=== PATIENT | female | born 1980 | race American Indian/Alaskan Native ===

== ENCOUNTER 2022-05-02 05:30 | Emergency (ER) | payer MEDICARE ==
[2022-05-02] MEDS ORDERED: MORPHINE 4 MG/1 ML INJ IV ONE (07:11)
[2022-05-02] MEDS ORDERED: ONDANSETRON 4 MG/2 ML INJ IV ONE (07:11)
[2022-05-02] MEDS ORDERED: diazePAM 10 MG/2 ML SYRINGE IV ONE ×2 (07:11→10:41)
--- NOTE | 2022-05-02 07:51 | Emergency Department Report ---
ED Neuro Deficit HPI - General Chief Complaint: Weakness Stated Complaint: LT SIDE PAIN Time Seen by Provider: 05/02/22 06:54 Source: EMS Mode of arrival: Stretcher Limitations: No Limitations - History of Present Illness Initial Comments: 42-year-old female with a past medical history of obesity, diabetes, depression, anxiety, herniated lumbar disc, and hypertension presents to the hospital with complaints of a right-sided pain and paresthesias intermittent for the past 2 days. Initially patient describes pain to the like stinging bees to her right foot that then radiated upwards to her right leg and arm. She had difficulty moving secondary to pain. Symptoms resolved and returned 30 minutes later. Last night since 10 PM patient has more constant and severe right sided paresthesias with pain involving her right face, arm, and leg. She was initially seen seen at an urgent care and referred to the ED for work-up. Contrary to triage patient did not receive CT imaging prior to arrival. Pain is moderate in intensity and is exacerbated by palpation. Patient denies previous history of anemia. States she does have heavy menstrual cycles with the last cycle ending April 11. She denies melena or hematochezia. - Related Data Allergies/Adverse Reactions: Allergies Allergy/AdvReac Type Severity Reaction Status Date / Time acetaminophen Allergy Unknown Verified 05/02/22 05:56 [From Darvocet-N] propoxyphene Allergy Unknown Verified 05/02/22 05:56 [From Darvocet-N] ED Review of Systems ROS: Stated complaint: LT SIDE PAIN Other details as noted in HPI Comment: All other systems reviewed and negative ED Past Medical Hx - Past Medical History Previous Medical History?: Yes Hx Hypertension: Yes Hx Diabetes: Yes Hx Arthritis: Yes Additional medical history: depression and anxiety - Surgical History Past Surgical History?: Yes Hx Cholecystectomy: Yes (1999) Additional Surgical History: gastric bypass 2019 - Social History Smoking Status: Never Smoker ED Neuro Physical Exam - General Limitations: No Limitations Suspected Stroke: Yes - NIHSS Assessment Interval: Baseline 1a. Level of Consciousness: alert/keenly responsive 1b. LOC Questions: answers both correctly 1c. LOC Commands: performs tasks correctly 2. Best Gaze: normal 3. Visual: no visual loss 4. Facial Palsy: normal symmetrical movement 5b. Motor Arm Right: no drift 5a. Motor Arm Left: no drift 6a. Motor Leg Left: no drift 6b. Motor Leg Right: no drift 7. Limb Ataxia: absent 8. Sensory: mild/moderate sensory loss 9. Best Language: no aphasia 10. Dysarthria: normal 11. Extinction/Inattention: no abnormality Total Score: 1 Stroke Severity: Minor Stroke - Other Other exam information: General: No acute distress Head: Atraumatic Eyes: normal appearance ENT: Moist mucous membranes Neck: Normal appearance, no midline tenderness Chest: Clear to auscultation bilaterally CV: Regular rate and rhythm Abdomen: Soft, normal bowel sounds, nontender, nondistended, no rebound or guarding Rectal: Brown stool guaiac sent to lab Back: Normal inspection Extremity: Normal inspection, full range of motion Neuro: Alert O x 3, hypersensitive to touch to the anterior right upper and forearm and right lower leg with pain on palpation Psych: Appropriate behavior Skin: No rash ED Course Vital Signs 05/02/22 05/02/22 05/02/22 05:48 06:28 06:31 Temperature 98.1 F Pulse Rate 64 66 Respiratory 18 11 L Rate Blood Pressure 166/72 153/76 O2 Sat by Pulse 98 100 100 Oximetry 05/02/22 05/02/22 05/02/22 06:45 07:01 07:02 Temperature Pulse Rate 63 79 Respiratory 16 23 Rate Blood Pressure 153/76 146/85 O2 Sat by Pulse 100 98 99 Oximetry 05/02/22 05/02/22 05/02/22 07:15 07:31 07:45 Temperature Pulse Rate 65 64 62 Respiratory 18 16 15 Rate Blood Pressure 155/89 150/88 132/54 O2 Sat by Pulse 100 99 99 Oximetry 05/02/22 05/02/22 05/02/22 08:01 08:15 08:31 Temperature Pulse Rate 76 72 67 Respiratory 16 16 14 Rate Blood Pressure 134/76 148/77 155/88 O2 Sat by Pulse 95 97 100 Oximetry 05/02/22 05/02/22 05/02/22 08:45 09:01 09:15 Temperature Pulse Rate 66 62 62 Respiratory 14 15 15 Rate Blood Pressure 155/88 145/80 145/80 O2 Sat by Pulse 99 99 100 Oximetry 05/02/22 05/02/22 05/02/22 09:31 09:45 10:01 Temperature Pulse Rate 59 L 64 62 Respiratory 15 16 13 Rate Blood Pressure 145/80 145/80 145/80 O2 Sat by Pulse 100 100 99 Oximetry 05/02/22 05/02/22 05/02/22 10:46 10:51 11:39 Temperature Pulse Rate 63 67 Respiratory 11 L 37 H Rate Blood Pressure 145/80 143/78 131/78 O2 Sat by Pulse 81 L 97 99 Oximetry 05/02/22 05/02/22 05/02/22 11:40 11:51 12:05 Temperature 98.4 F Pulse Rate 65 62 Respiratory 18 18 Rate Blood Pressure 131/78 131/78 136/68 O2 Sat by Pulse 100 81 L 100 Oximetry 05/02/22 12:20 Temperature 98.4 F Pulse Rate 60 Respiratory 18 Rate Blood Pressure 127/67 O2 Sat by Pulse 99 Oximetry - Consultations Consultation #1: 05/02/22 07:[address] Bianchi with telemetry neuro. If no hemorrhage on CT head recommends aspirin and MRI - Lab Data Result diagrams: 05/02/22 07:28 05/02/22 07:28 Lab Results 05/02/22 05/02/22 05/02/22 Range/Units 07:28 07:28 07:28 WBC 4.6 (4.5-11.0) K/mm3 RBC 3.59 L (3.65-5.03) M/mm3 Hgb 5.8 L* (10.1-14.3) gm/dl Hct 21.0 L (30.3-42.9) % MCV 58 L (79-97) fl MCH 16 L (28-32) pg MCHC 28 L (30-34) % RDW 23.2 H (13.2-15.2) % Plt Count 173 (140-440) K/mm3 Add Manual Diff Complete Total Counted 100 Seg Neuts % (Manual) 52.0 (40.0-70.0) % Band Neutrophils % 0 % Lymphocytes % (Manual) 42.0 H (13.4-35.0) % Reactive Lymphs % (Man) 0 % Monocytes % (Manual) 5.0 (0.0-7.3) % Eosinophils % (Manual) 1.0 (0.0-4.3) % Basophils % (Manual) 0 (0.0-1.8) % Metamyelocytes % 0 % Myelocytes % 0 % Promyelocytes % 0 % Blast Cells % 0 % Nucleated RBC % Not Reportable Seg Neutrophils # Man 2.4 (1.8-7.7) K/mm3 Band Neutrophils # 0.0 K/mm3 Lymphocytes # (Manual) 1.9 (1.2-5.4) K/mm3 Abs React Lymphs (Man) 0.0 K/mm3 Monocytes # (Manual) 0.2 (0.0-0.8) K/mm3 Eosinophils # (Manual) 0.0 (0.0-0.4) K/mm3 Basophils # (Manual) 0.0 (0.0-0.1) K/mm3 Metamyelocytes # 0.0 K/mm3 Myelocytes # 0.0 K/mm3 Promyelocytes # 0.0 K/mm3 Blast Cells # 0.0 K/mm3 WBC Morphology Not Reportable Hypersegmented Neuts Not Reportable Hyposegmented Neuts Not Reportable Hypogranular Neuts Not Reportable Smudge Cells Not Reportable Toxic Granulation Not Reportable Toxic Vacuolation Not Reportable Dohle Bodies Not Reportable Pelger-Huet Anomaly Not Reportable Halina Rods Not Reportable Platelet Estimate Consistent w auto Clumped Platelets Not Reportable Plt Clumps, EDTA Not Reportable Large Platelets Not Reportable Giant Platelets Few Platelet Satelliting Not Reportable Plt Morphology Comment Not Reportable RBC Morphology Not Reportable Dimorphic RBCs Not Reportable Polychromasia Few Hypochromasia 3+ Poikilocytosis Not Reportable Anisocytosis 2+ Microcytosis 2+ Macrocytosis Not Reportable Spherocytes Not Reportable Pappenheimer Bodies Not Reportable Sickle Cells Not Reportable Target Cells Not Reportable Tear Drop Cells Not Reportable Ovalocytes Not Reportable Helmet Cells Not Reportable [place] Bodies Not Reportable [place] Rings Not Reportable [place] Cells Not Reportable Bite Cells Not Reportable Crenated Cell Not Reportable Elliptocytes Not Reportable Acanthocytes (Spur) Not Reportable Rouleaux 1+ Hemoglobin C Crystals Not Reportable Schistocytes Not Reportable Malaria parasites Not Reportable Jacky Bodies Not Reportable Hem Pathologist Commnt No PT 14.3 (12.2-14.9) Sec. INR 1.00 (0.87-1.13) APTT 26.8 (24.2-36.6) Sec. Thrombin Time 15.1 (15.1-19.6) Sec. Sodium 140 (137-145) mmol/L Potassium 3.8 (3.6-5.0) mmol/L Chloride 105.2 (98-107) mmol/L Carbon Dioxide 25 (22-30) mmol/L Anion Gap 14 mmol/L BUN 10 (7-17) mg/dL Creatinine 0.5 L (0.6-1.2) mg/dL Estimated GFR > 60 ml/min BUN/Creatinine Ratio 20 % Glucose 80 (65-100) mg/dL Calcium 9.0 (8.4-10.2) mg/dL Magnesium (1.7-2.3) mg/dL Total Bilirubin 0.30 (0.1-1.2) mg/dL AST 19 (5-40) units/L ALT 13 (7-56) units/L Alkaline Phosphatase 79 (35-129) units/L Total Creatine Kinase 116 (30-135) units/L CK-MB (CK-2) 2.9 (0.0-4.0) ng/mL CK-MB (CK-2) Rel Index 2.5 (0-4) Troponin T < 0.010 (0.00-0.029) ng/mL Total Protein 7.3 (6.3-8.2) g/dL Albumin 4.1 (3.9-5) g/dL Albumin/Globulin Ratio 1.3 % TSH (0.270-4.200) mlU/mL Free T4 (0.76-1.46) ng/dL HCG, Quant (0-4) mIU/mL Blood Type Antibody Screen Crossmatch 05/02/22 05/02/22 05/02/22 Range/Units 07:28 07:28 09:24 WBC (4.5-11.0) K/mm3 RBC (3.65-5.03) M/mm3 Hgb (10.1-14.3) gm/dl Hct (30.3-42.9) % MCV (79-97) fl MCH (28-32) pg MCHC (30-34) % RDW (13.2-15.2) % Plt Count (140-440) K/mm3 Add Manual Diff Total Counted Seg Neuts % (Manual) (40.0-70.0) % Band Neutrophils % % Lymphocytes % (Manual) (13.4-35.0) % Reactive Lymphs % (Man) % Monocytes % (Manual) (0.0-7.3) % Eosinophils % (Manual) (0.0-4.3) % Basophils % (Manual) (0.0-1.8) % Metamyelocytes % % Myelocytes % % Promyelocytes % % Blast Cells % % Nucleated RBC % Seg Neutrophils # Man (1.8-7.7) K/mm3 Band Neutrophils # K/mm3 Lymphocytes # (Manual) (1.2-5.4) K/mm3 Abs React Lymphs (Man) K/mm3 Monocytes # (Manual) (0.0-0.8) K/mm3 Eosinophils # (Manual) (0.0-0.4) K/mm3 Basophils # (Manual) (0.0-0.1) K/mm3 Metamyelocytes # K/mm3 Myelocytes # K/mm3 Promyelocytes # K/mm3 Blast Cells # K/mm3 WBC Morphology Hypersegmented Neuts Hyposegmented Neuts Hypogranular Neuts Smudge Cells Toxic Granulation Toxic Vacuolation Dohle Bodies Pelger-Huet Anomaly Halina Rods Platelet Estimate Clumped Platelets Plt Clumps, EDTA Large Platelets Giant Platelets Platelet Satelliting Plt Morphology Comment RBC Morphology Dimorphic RBCs Polychromasia Hypochromasia Poikilocytosis Anisocytosis Microcytosis Macrocytosis Spherocytes Pappenheimer Bodies Sickle Cells Target Cells Tear Drop Cells Ovalocytes Helmet Cells [place] Bodies [place] Rings [place] Cells Bite Cells Crenated Cell Elliptocytes Acanthocytes (Spur) Rouleaux Hemoglobin C Crystals Schistocytes Malaria parasites Jacky Bodies Hem Pathologist Commnt PT (12.2-14.9) Sec. INR (0.87-1.13) APTT (24.2-36.6) Sec. Thrombin Time (15.1-19.6) Sec. Sodium (137-145) mmol/L Potassium (3.6-5.0) mmol/L Chloride (98-107) mmol/L Carbon Dioxide (22-30) mmol/L Anion Gap mmol/L BUN (7-17) mg/dL Creatinine (0.6-1.2) mg/dL Estimated GFR ml/min BUN/Creatinine Ratio % Glucose (65-100) mg/dL Calcium (8.4-10.2) mg/dL Magnesium 2.20 (1.7-2.3) mg/dL Total Bilirubin (0.1-1.2) mg/dL AST (5-40) units/L ALT (7-56) units/L Alkaline Phosphatase (35-129) units/L Total Creatine Kinase (30-135) units/L CK-MB (CK-2) (0.0-4.0) ng/mL CK-MB (CK-2) Rel Index (0-4) Troponin T < 0.010 (0.00-0.029) ng/mL Total Protein (6.3-8.2) g/dL Albumin (3.9-5) g/dL Albumin/Globulin Ratio % TSH 1.840 (0.270-4.200) mlU/mL Free T4 1.12 (0.76-1.46) ng/dL HCG, Quant < 2 (0-4) mIU/mL Blood Type Antibody Screen Crossmatch 05/02/22 Range/Units 09:29 WBC (4.5-11.0) K/mm3 RBC (3.65-5.03) M/mm3 Hgb (10.1-14.3) gm/dl Hct (30.3-42.9) % MCV (79-97) fl MCH (28-32) pg MCHC (30-34) % RDW (13.2-15.2) % Plt Count (140-440) K/mm3 Add Manual Diff Total Counted Seg Neuts % (Manual) (40.0-70.0) % Band Neutrophils % % Lymphocytes % (Manual) (13.4-35.0) % Reactive Lymphs % (Man) % Monocytes % (Manual) (0.0-7.3) % Eosinophils % (Manual) (0.0-4.3) % Basophils % (Manual) (0.0-1.8) % Metamyelocytes % % Myelocytes % % Promyelocytes % % Blast Cells % % Nucleated RBC % Seg Neutrophils # Man (1.8-7.7) K/mm3 Band Neutrophils # K/mm3 Lymphocytes # (Manual) (1.2-5.4) K/mm3 Abs React Lymphs (Man) K/mm3 Monocytes # (Manual) (0.0-0.8) K/mm3 Eosinophils # (Manual) (0.0-0.4) K/mm3 Basophils # (Manual) (0.0-0.1) K/mm3 Metamyelocytes # K/mm3 Myelocytes # K/mm3 Promyelocytes # K/mm3 Blast Cells # K/mm3 WBC Morphology Hypersegmented Neuts Hyposegmented Neuts Hypogranular Neuts Smudge Cells Toxic Granulation Toxic Vacuolation Dohle Bodies Pelger-Huet Anomaly Halina Rods Platelet Estimate Clumped Platelets Plt Clumps, EDTA Large Platelets Giant Platelets Platelet Satelliting Plt Morphology Comment RBC Morphology Dimorphic RBCs Polychromasia Hypochromasia Poikilocytosis Anisocytosis Microcytosis Macrocytosis Spherocytes Pappenheimer Bodies Sickle Cells Target Cells Tear Drop Cells Ovalocytes Helmet Cells [place] Bodies [place] Rings [place] Cells Bite Cells Crenated Cell Elliptocytes Acanthocytes (Spur) Rouleaux Hemoglobin C Crystals Schistocytes Malaria parasites Jacky Bodies Hem Pathologist Commnt PT (12.2-14.9) Sec. INR (0.87-1.13) APTT (24.2-36.6) Sec. Thrombin Time (15.1-19.6) Sec. Sodium (137-145) mmol/L Potassium (3.6-5.0) mmol/L Chloride (98-107) mmol/L Carbon Dioxide (22-30) mmol/L Anion Gap mmol/L BUN (7-17) mg/dL Creatinine (0.6-1.2) mg/dL Estimated GFR ml/min BUN/Creatinine Ratio % Glucose (65-100) mg/dL Calcium (8.4-10.2) mg/dL Magnesium (1.7-2.3) mg/dL Total Bilirubin (0.1-1.2) mg/dL AST (5-40) units/L ALT (7-56) units/L Alkaline Phosphatase (35-129) units/L Total Creatine Kinase (30-135) units/L CK-MB (CK-2) (0.0-4.0) ng/mL CK-MB (CK-2) Rel Index (0-4) Troponin T (0.00-0.029) ng/mL Total Protein (6.3-8.2) g/dL Albumin (3.9-5) g/dL Albumin/Globulin Ratio % TSH (0.270-4.200) mlU/mL Free T4 (0.76-1.46) ng/dL HCG, Quant (0-4) mIU/mL Blood Type B POSITIVE Antibody Screen Negative Crossmatch See Detail - EKG Data -: EKG Interpreted by Me EKG shows normal: sinus rhythm, intervals (Prolonged IA 211), ST-T waves ([facility]) Rate: normal When compared to previous EKG there are: previous EKG unavailable - Radiology Data Radiology results: report reviewed CT head, CT cervical spine, CT angiogram head and neck reviewed. No significant acute abnormalities. Please refer to official report - Medical Decision Making 42-year-old female presents to the hospital with complaints of a right sided paresthesias x2 days. Symptoms more persistent since last night. Neurology consult appreciated. CT head, cervical spine, and CT angiogram head and neck do not reveal any significant acute abnormalities. Labs significant for significant anemia. Patient does endorse fatigue and shortness of breath when questioned. She does have a history of heavy menstrual cycles. Denies known history of iron deficiency anemia. Guaiac negative brown stool on exam. 1 unit of PRBC initiated in the ED. Aspirin provided for stroke symptoms. Patient discussed with hospitalist for admission for further work-up and evaluation Critical Care Time: No Critical care attestation.: If time is entered above; I have spent that time in minutes in the direct care of this critically ill patient, excluding procedure time. ED Disposition Clinical Impression: Right sided numbness, Paresthesia, Signs and symptoms of anemia Disposition: ADMITTED INPATIENT Is pt being admited?: Yes Condition: Stable Time of Disposition: 12:30 (Dr Cole/hospitalist)
[2022-05-02 08:53] LABS: Mean Corpuscular HGB Conc 28 % (30-34); Platelet Count 173 K/mm3 (140-440); Red Blood Count 3.59 M/mm3 (3.65-5.03)
[2022-05-02 09:01] LABS: Hemoglobin 5.8 gm/dl (10.1-14.3); Mean Corpuscular Volume 58 fl (79-97); Red Cell Distribution Width 23.2 % (13.2-15.2)
[2022-05-02 09:15] LABS: Alanine Aminotransferase 13 units/L (7-56); Albumin 4.1 g/dL (3.9-5); Blood Urea Nitrogen 10 mg/dL (7-17); Creatine Kinase MB 2.9 ng/mL (0.0-4.0); Hemolysis Index 0
[2022-05-02 09:19] LABS: Free T4 (Free Thyroxine) 1.12 ng/dL (0.76-1.46)
[2022-05-02 09:27] LABS: BUN/Creatinine Ratio 20; HCG,Quantitative < 2 mIU/mL (0-4)
[2022-05-02 09:32] LABS: Partial Thromboplastin Time 26.8 Sec. (24.2-36.6)
[2022-05-02 09:33] LABS: Thrombin Time 15.1 Sec. (15.1-19.6)
[2022-05-02] MEDS ORDERED: SODIUM CHLORIDE 0.9% 500 ML 500 ML IV ONE (10:18)
--- NOTE | 2022-05-02 11:48 | Cat Scan Report ---
CT HEAD WITHOUT CONTRAST INDICATION / CLINICAL INFORMATION: Right-sided paresthesias x2 days. TECHNIQUE: Axial imaging performed from the skull apex through the skull base without the use of cont rast. Sagittal and coronal reformatted images. All CT scans at this location are performed using CT dose reduction for ALARA by means of automated exposure control. COMPARISON: None available. FINDINGS: CEREBRAL PARENCHYMA: No significant abnormality. No acute territorial infarct. HEMORRHAGE: None. EXTRA-AXIAL SPACES: Normal in size and morphology for the patient's age. VENTRICULAR SYSTEM: Normal in size and morphology for the patient's age. MIDLINE SHIFT OR HERNIATION: None. CEREBELLUM / BRAINSTEM: No significant abnormality. CALVARIUM: No significant abnormality. ORBITS: Normal as visualized. PARANASAL SINUSES / MASTOID AIR CELLS: Normal as visualized. SOFT TISSUES of HEAD: No significant abnormality. ADDITIONAL FINDINGS: None. IMPRESSION: No acute intracranial abnormality. Cranial CT scan within normal limits. Signer Name: Moises Tanner Jr, MD Signed: 05/02/2022 11:43 AM Workstation Name: [id number]
[2022-05-02 12:00] LABS: Anisocytosis 2+; Basophils % (Manual) 0 % (0.0-1.8); Hypochromasia 3+; Total Cells Counted 100
[2022-05-02 12:01] LABS: Rouleaux 1+
[2022-05-02 12:03] LABS: Giant Platelets Few; Platelet Estimate Consistent w Auto
--- NOTE | 2022-05-02 12:19 | Cat Scan Report ---
CT CERVICAL SPINE WITHOUT CONTRAST INDICATION: Right-sided paresthesias x2 days. TECHNIQUE: Axial imaging performed through the cervical spine without the use of contrast. Sagittal and coronal reconstructed images were also reviewed. All CT scans at this location are performed us ing CT dose reduction for ALARA by means of automated exposure control. COMPARISON: None FINDINGS: Alignment: There is mild reversal of the normal cervical lordosis which could be secondary to positi oning or muscular spasm. No subluxation. Bones: There is no acute osseous abnormality. Mild discogenic DJD is identified at C5-6. The remain ing levels are within normal limits. No significant facet arthropathy. No obvious narrowing of the [place] neural foramen. Bilateral cervical ribs are identified at C7, small on the right and moderate on the left. Soft tissues: No acute or significant incidental soft tissue abnormality. IMPRESSION: 1. No acute abnormality. 2. 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 3. Bilateral cervical ribs C7, left greater than right Signer Name: Moises Tanner Jr, MD Signed: 05/02/2022 12:13 PM Workstation Name: [id number]
--- NOTE | 2022-05-02 12:22 | Cat Scan Report ---
CT angio head, CT angio neck HISTORY: Right-sided paresthesias x2 days COMPARISON: None. TECHNIQUE: CTA of the neck and head is performed after IV contrast. 3-D/MIP reformats were postproces sed. Percentage stenosis is determined by direct quantitative measurements of diseased internal [place] tid artery diameter compared with normal distal internal carotid artery reference segments or by crit eria similar to NASCET where applicable. All CT scans at this location are performed using CT dose re duction for ALARA by means of automated exposure control. FINDINGS: CTA NECK: Aortic arch: No significant abnormality. Cervical vertebral arteries: No occlusion or hemodynamically significant stenosis. Common Carotid arteries: No occlusion or hemodynamically significant stenosis. Internal carotid arteries: No occlusion or hemodynamically significant stenosis. CTA HEAD: Intracranial internal carotid arteries: No occlusion or significant stenosis. Anterior cerebral arteries: No occlusion or significant stenosis. Middle cerebral arteries: No occlusion or significant stenosis. Intracranial vertebral arteries: No occlusion or significant stenosis. Basilar artery: No occlusion or significant stenosis. Posterior cerebral arteries: No occlusion or significant stenosis. No aneurysm. Additional findings: None. IMPRESSION: 1. CTA NECK: No occlusion or significant stenosis of the carotid or vertebral arteries. 2. CTA HEAD: No occlusion or significant stenosis of the major intracranial vasculature. Signer Name: Bryson García MD Signed: 05/02/2022 12:18 PM Workstation Name: [id number]
[2022-05-02] MEDS ORDERED: ASPIRIN 325 MG TAB PO ONE (12:26)
--- NOTE | 2022-05-02 13:09 | Consultation ---
History of Present Illness - Reason for Consult Consult date: 05/02/22 Tingling in arm and leg Requesting physician: JEFFERSON KUMARI - History of Present Illness 42 YO Female with Obesity S/P Gastric bypass, DM, MDD, BRI, OA, HTN presents ED for evaluation. Patient reports "it feels like bees are stinging me in my foot and my arm". Patient states that she has experienced stinging pain and discomfort to her leg and arm over the past several months with worsening sym ptoms over the past 2 days. Patient states his symptoms are intermittent and normally last approximate 1/2-hour. EMS was notified and upon arrival the patient was ultimately transferred to [facility] for further care and evaluation of the aforementioned symptoms. The patient seen and evaluated emergency department. All lab and imaging studies reviewed. Patient with extensive neuroradiology work-up including CT scan of the brain, CTA head and CTA neck which were unremarkable. Patient found to have clinical symptoms consistent with vitamin B deficiency which is common after gastric bypass as well as with concomitant diabetic neuropathy. Patient also found to have iron deficiency anemia. Richy lawler does not meet admission criteria at this time. Patient may be discharged home for outpatient follow-up with primary care physician. Patient seen and evaluated prior to discharge no significant physical exam findings. Past History Past Medical History: diabetes, hypertension, other (See HPI) Past Surgical History: cholecystectomy, bowel surgery, Other (Gastric bypass) Social history: single Family history: diabetes. denies: hypertension Medications and Allergies Allergies Allergy/AdvReac Type Severity Reaction Status Date / Time acetaminophen Allergy Unknown Verified 05/02/22 05:56 [From Darvocet-N] propoxyphene Allergy Unknown Verified 05/02/22 05:56 [From Darvocet-N] Home Medications Medication Instructions Recorded Confirmed Last Taken Type Ferrous Sulfate [Ferrous Sulfate 324 mg PO TID #90 05/02/22 Unknown Rx 324 MG] Gabapentin [Neurontin] 600 mg PO BID #60 05/02/22 Unknown Rx Sennosides/Docusate Sodium [Cvs 1 each PO BID #60 05/02/22 Unknown Rx Senna Plus Tablet] Vitamin B Complex [B Complex] 1 each PO DAILY #30 05/02/22 Unknown Rx Review of Systems Constitutional: no weight loss, no weight gain, no fever, no chills Ears, nose, mouth and throat: no ear pain, no tinnitis, no decreased hearing, no nose pain, no nasal discharge Breasts: no change in shape Cardiovascular: no chest pain, no orthopnea, no palpitations, no syncope Respiratory: no cough, no cough with sputum, no hemoptysis, no dyspnea on exertion Gastrointestinal: no abdominal pain, no constipation, no hematemesis Genitourinary Female: no pelvic pain, no flank pain, no dysuria, no urinary frequency Rectal: no pain, no incontinence, no bleeding Musculoskeletal: no neck stiffness, no neck pain, no arm numbness/tingling Integumentary: no rash, no pruritis, no redness, no wounds, no jaundice Neurological: parathesias, burning pain, no head injury, no paralysis, no weakne ss, no seizures, no syncope, no tremors, no ataxia, no vertigo, no headaches, no migraines, no aphasia, no change in mentation, no memory loss, no gait dysfunction, no motor disturbance, no sensory deficit, no double vision, no loss of vision Psychiatric: no anxiety, no memory loss, no change in appetite, no change in libido, no suicidal ideation Endocrine: no cold intolerance, no excessive thirst, no polydipsia, no excessive sweating Hematologic/Lymphatic: no easy bruising, no easy bleeding, no lymphadenopathy Allergic/Immunologic: no urticaria, no anaphylaxis Exam - Constitutional Vitals: Temp Pulse Resp BP Pulse Ox 98.4 F 75 15 131/78 100 05/02/22 12:20 05/02/22 12:31 05/02/22 12:31 05/02/22 12:31 05/02/22 12:31 General appearance: Present: no acute distress, obese - EENT Eyes: Present: PERRL ENT: hearing intact, clear oral mucosa - Neck Neck: Present: supple, normal ROM - Respiratory Respiratory effort: normal Respiratory: bilateral: CTA - Cardiovascular Heart Sounds: Present: S1 & S2. Absent: rub, click - Extremities Extremities: pulses symmetrical, No edema Peripheral Pulses: within normal limits - Abdominal General gastrointestinal: Present: soft, non-tender, non-distended, normal bowel sounds Female genitourinary: Present: normal - Integumentary Integumentary: Present: clear, warm, dry - Musculoskeletal Musculoskeletal: gait normal, strength equal bilaterally - Psychiatric Psychiatric: appropriate mood/affect, intact judgment & insight - Neurologic Neurologic: CNII-XII intact, moves all extremities Results - Labs CBC & Chem 7: 05/02/22 07:28 05/02/22 07:28 Labs: Abnormal lab results 05/02/22 05/02/22 05/02/22 Range/Units 07:28 07:28 09:29 RBC 3.59 L (3.65-5.03) M/mm3 Hgb 5.8 L* (10.1-14.3) gm/dl Hct 21.0 L (30.3-42.9) % MCV 58 L (79-97) fl MCH 16 L (28-32) pg MCHC 28 L (30-34) % RDW 23.2 H (13.2-15.2) % Lymphocytes % (Manual) 42.0 H (13.4-35.0) % Creatinine 0.5 L (0.6-1.2) mg/dL Crossmatch See Detail Assessment and Plan - Patient Problems (1) Iron deficiency anemia Status: Acute Qualifiers: Iron deficiency anemia type: inadequate dietary iron intake Qualified Code(s): D50.8 - Other iron deficiency anemias Plan to address problem: Iron replacement therapy, supportive care. Patient transfused 1 unit packed red blood cells in the emergency department. (2) Paresthesia Status: Acute Plan to address problem: Suspected secondary to B12 deficiency. Recommend vitamin B12 replacement therapy. Outpatient follow-up with primary care physician. (3) Advance care planning Status: Acute Plan to address problem: Disease education done, care plan discussed, diagnoses discussed, prognosis discussed. Patient acknowledges understanding and agreement with care plan, +30 minutes. (4) Preventative health care Status: Acute Plan to address problem: Patient counseled regarding balanced diet, weight reduction, increase physical activity discharge, outpatient pulmonary follow-up for sleep study. Patient counseled regarding outpatient follow-up with water resource agent, as well as primary care physician for all age and risk factor appropriate screening test. +30 minutes.
[2022-05-02 14:19] LABS: Amphetamine Screen,Urine Negative; Benzodiazepines Screen,Urine Negative; Cannabinoid Screen,Urine Negative; Cocaine Screen,Urine Negative; Methadone Screen,Urine Negative; Opiate Screen,Urine Negative
[2022-05-02 14:58] LABS: Bilirubin,Urine Negative (Negative); Blood,Urine Negative (Negative); Color,Urine Straw (Yellow); PH,Urine 7.5 (5.0-7.0)
[2022-05-02 14:59] LABS: Urobilinogen,Urine < 2.0 mg/dL (<2.0)
[2022-05-02 15:12] LABS: Mucus,Urine FEW /HPF
[2022-05-02 16:03] VITALS: BP 131/62
--- NOTE | 2022-05-02 18:35 | Consultation ---
History of Present Illness History of present illness: [facility] Consult Note # Demographics Consult Type: General Neurology Patient Location: Emergency Room First Name: rebekah Last Name: sarath Date of : 1980 Age: 42 Gender: Female Facility: [facility] Time of Initial Page (Eastern Time): 05/02/2022, 07:46 Time of Return Call (Eastern Time): 05/02/2022, 07:47 Phone Only Consult: 42F with DM, HTN, obesity presented with right-sided pain/paresthesias intermittently x2 days. Started in right foot then radiated upwards into right arm and leg. Had trouble moving secondary to pain. Resolved after 30 minutes. Started again evening of 05/01 at 2200, more constant paresthesias with pain the right face, arm and leg. Also noted to be anemic to hemoglobin of 5.8. Discussed that this may represent a thalamic stroke/pain syndrome. Would get CTH, CTA head/neck and admit for stroke evaluation. Hold on ASA pending further work-up given significant anemia. # Log[employer] Telemedicine: phone only Past History Past Medical History: diabetes, hypertension, other (See HPI) Past Surgical History: cholecystectomy, bowel surgery, Other (Gastric bypass) Social history: single Family history: diabetes. denies: hypertension Medications and Allergies Allergies Allergy/AdvReac Type Severity Reaction Status Date / Time acetaminophen Allergy Unknown Verified 05/02/22 05:56 [From Darvocet-N] propoxyphene Allergy Unknown Verified 05/02/22 05:56 [From Darvocet-N] Home Medications Medication Instructions Recorded Confirmed Last Taken Type Ferrous Sulfate [Ferrous Sulfate 324 mg PO TID #90 05/02/22 Unknown Rx 324 MG] Gabapentin [Neurontin] 600 mg PO BID #60 05/02/22 Unknown Rx Sennosides/Docusate Sodium [Cvs 1 each PO BID #60 05/02/22 Unknown Rx Senna Plus Tablet] Vitamin B Complex [B Complex] 1 each PO DAILY #30 05/02/22 Unknown Rx Physical Examination - Vital Signs Vital Signs: Vital Signs Temp Pulse Resp BP Pulse Ox 98.1 F 64 18 166/72 98 05/02/22 05:48 05/02/22 05:48 05/02/22 05:48 05/02/22 05:48 05/02/22 05:48 Results - Laboratory Findings CBC and BMP: 05/02/22 07:28 05/02/22 07:28 Abnormal Lab Findings: Abnormal Labs 05/02/22 05/02/22 05/02/22 07:28 07:28 09:29 RBC 3.59 L Hgb 5.8 L* Hct 21.0 L MCV 58 L MCH 16 L MCHC 28 L RDW 23.2 H Lymphocytes % (Manual) 42.0 H Creatinine 0.5 L Urine pH U Epithel Cells (Auto) Crossmatch See Detail 05/02/22 13:06 RBC Hgb Hct MCV MCH MCHC RDW Lymphocytes % (Manual) Creatinine Urine pH 7.5 H U Epithel Cells (Auto) 24.0 H Crossmatch
--- NOTE | 2022-05-04 17:12 | Electrocardiograph Report ---
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
== END 2022-05-02 17:00 | disposition home or self-care (01) ==
LOC: ED 05:30
DX: D64.9 Anemia, unspecified (principal); R20.0 Anesthesia of skin; R20.2 Paresthesia of skin; I10 Essential (primary) hypertension; E11.9 Type 2 diabetes mellitus without complications; M19.90 Unspecified osteoarthritis, unspecified site; F32.9 Major depressive disorder, single episode, unspecified; F41.9 Anxiety disorder, unspecified; Z90.49 Acquired absence of other specified parts of digestive tract; Z88.6 Allergy status to analgesic agent; Z88.8 Allergy status to other drugs, medicaments and biological substances; R79.1 Abnormal coagulation profile; R94.6 Abnormal results of thyroid function studies
CPT/HCPCS: 36415; 36430; 70450; 70496; 70498; 72125; 80053; 80307; 81001; 82271; 82550; 82553; 83735; 84439; 84443; 84484; 84702; 85007; 85025; 85610; 85670; 85730; 86850; 86900; 86901; 86920; 93005; 96374; 96375; 96376; 99284; J2270; J2405; J3360; J7040; P9016; Q9967